=== PATIENT | male | born 1945 | race Caucasian/White ===

== ENCOUNTER 2020-07-29 08:15 | Emergency (ER) | payer OTHER ==
[2020-07-29 09:55] LABS: Absolute Lymphocytes (CBC) 1.3 K/uL (0.7-4.9); Hematocrit 44.7 % (39.6-49.0); MPV 8.3 fL (7.6-11.3)
--- NOTE | 2020-07-29 10:06 | RAD REPORT ---
EXAM DESCRIPTION: Isabelle Single View07/29/2020 9:53 am CLINICAL HISTORY: Shortness of breath COMPARISON: none FINDINGS: The lungs are mildly hyperaerated. The lungs appear clear of acute infiltrate. The heart is normal size IMPRESSION: No acute abnormalities displayed
[2020-07-29 10:14] LABS: BUN Blood Urea Nitrogen 10 mg/dL (7-18); Bicarbonate 29 mmol/L (21-32); Glucose Level 156 mg/dL (74-106); Magnesium 2.3 mg/dL (1.8-2.4); NT PRO-BNP 72 pg/mL (<125); Potassium 4.4 mmol/L (3.5-5.1); Sodium Level 139 mmol/L (136-145); Troponin (Emerg Dept Use Only) < 0.02 ng/mL (0.0-0.045)
--- NOTE | 2020-07-29 12:16 | EDPHYS ---
Physician Documentation [facility] Name: Charles Taylor Age: 74 yrs Sex: Male : 1945 Arrival Date: 07/29/2020 Time: 08:17 Bed 15 Private MD: ED Physician Cristhian Bender HPI: 07/29 12:06 This 74 yrs old Male presents to ER via Wheelchair with complaints of rn Shortness Of Breath, Cough. 12:06 The patient has shortness of breath at rest, with light activity. rn 12:06 Onset: The symptoms/episode began/occurred 3 week(s) ago. Duration: The symptoms are rn continuous, and are unchanged since they started. The patient's shortness of breath is aggravated by coughing, light activity, is alleviated by nothing. Severity of symptoms: At their worst the symptoms were mild in the emergency department the symptoms are unchanged. The patient has experienced similar episodes in the past. Reports 3 weeks of productive cough. No fever. + dyspnea with exertion. Came in for cxr and abx. [place]campo snot feel as bad as when had pneumonia in past. . Historical: - Allergies: 09:06 No Known Allergies; zb - Home Meds: 09:06 Unable to obtain [Active]; zb - PMHx: 09:06 Diabetes - NIDDM; Hypertension; zb - Immunization history:: Adult Immunizations up to date. - Social history:: Smoking status: Patient/guardian denies using tobacco, but has a distant history of tobacco abuse. - Family history:: not pertinent. - Hospitalizations: : No recent hospitalization is reported. ROS: 12:06 Constitutional: Negative for fever, chills, and weight loss, Eyes: Negative for injury, rn pain, redness, and discharge, ENT: Negative for injury, pain, and discharge, Neck: Negative for injury, pain, and swelling, Cardiovascular: Negative for chest pain, palpitations, and edema, Respiratory: + cough and sob Abdomen/GI: Negative for abdominal pain, nausea, vomiting, diarrhea, and constipation, Back: Negative for injury and pain, MS/Extremity: Negative for injury and deformity, Skin: Negative for injury, rash, and discoloration, Neuro: Negative for headache, weakness, numbness, tingling, and seizure. Exam: 12:06 Constitutional: This is a well developed, well nourished patient who is awake, alert, rn and in no acute distress. Head/Face: Normocephalic, atraumatic. ENT: No stridor Neck: Trachea midline, no thyromegaly or masses palpated, and no cervical lymphadenopathy. Supple, full range of motion without nuchal rigidity, or vertebral point tenderness. No Meningismus. Cardiovascular: Regular rate and rhythm. No pulse deficits. Respiratory: No increased work of breathing, no retractions or nasal flaring. Coarse breath sounds bilaterally Abdomen/GI: soft, non-tender Skin: Warm, dry MS/ Extremity: Pulses equal, no cyanosis. Neurovascular intact. Full, normal range of motion. Equal circumference. Neuro: Awake and alert, GCS 15, oriented to person, place, time, and situation. Cranial nerves II-XII grossly intact. Motor strength 5/5 in all extremities. Sensory grossly intact. Cerebellar exam normal. Normal gait. Vital Signs: 08:30 BP 139 / 101; Pulse 89; Resp 18; Temp 98.1(O); Pulse Ox 91% on R/A; Weight 120.2 kg; ph Height 6 ft. (182.88 cm); Pain 0/10; 09:30 BP 105 / 90; Pulse 74; Resp 18; Pulse Ox 90% on R/A; ph 10:30 BP 137 / 101; Pulse 76; Resp 18; Pulse Ox 92% on R/A; zb 11:30 BP 138 / 73; Pulse 71; Resp 16; Pulse Ox 94% on 2 lpm NC; zb 12:41 BP 123 / 74; Pulse 74; Resp 18; Pulse Ox 95% on 2 lpm NC; zb 08:30 Body Mass Index 35.94 (120.20 kg, 182.88 cm) ph MDM: 08:25 Patient medically screened. rn 12:06 Differential diagnosis: asthma, Chronic Obstructive Pulmonary Disease pneumonia, rn Pneumothorax pulmonary edema, reactive airway disease, Sepsis. Data reviewed: vital signs, nurses notes, lab test result(s), radiologic studies, plain films, and as a result, I will discharge patient. Counseling: I had a detailed discussion with the patient and/or guardian regarding: the historical points, exam findings, and any diagnostic results supporting the discharge/admit diagnosis, lab results, radiology results, the need for outpatient follow up, to return to the emergency department if symptoms worsen or persist or if there are any questions or concerns that arise at home. 12:10 Response to treatment: the patient's symptoms have mildly improved after treatment, and rn as a result, I will discharge patient. Special discussion: I discussed with the patient/guardian in detail that at this point there is no indication for admission to the hospital. It is understood, however, that if the symptoms persist or worsen the patient needs to return immediately for re-evaluation. ED course: Neg procal, cxr clear, possibly viral infection vs early pneumonia with COPD. . 12:14 ED course: Spoke with patient, wants to go home, neg hernandezal, reports "like this for 3 rn weeks", understands risks/benefits, will dc home. . 07/29 08:36 Order name: Blood Culture Adult (2) rn 07/29 08:36 Order name: BMP; Complete Time: 10:27 07/29 08:36 Order name: CBC with Diff; Complete Time: 10: 07/29 08:36 Order name: Magnesium; Complete Time: 10: 07/29 08:36 Order name: NT PRO-BNP; Complete Time: 10:27 rn 07/29 08:36 Order name: Troponin (emerg Dept Use Only); Complete Time: 10:27 07/29 08:36 Order name: XRAY CXR (1 view); Complete Time: 10:27 07/29 08:36 Order name: EKG; Complete Time: 08:38 rn 07/29 08:36 Order name: Flu rn 07/29 08:36 Order name: COVID-19 rn 07/29 08:36 Order name: Procalcitonin; Complete Time: 12:06 rn 07/29 08:36 Order name: Lactate; Complete Time: 10:27 rn 07/29 08:36 Order name: Cardiac monitoring; Complete Time: 11:04 rn 07/29 08:36 Order name: EKG - Nurse/Tech; Complete Time: 11:43 rn 07/29 08:36 Order name: IV Saline Lock; Complete Time: 09:50 rn 07/29 08:36 Order name: Labs collected and sent; Complete Time: 09:50 rn 07/29 08:36 Order name: O2 Per Protocol; Complete Time: 11:54 rn 07/29 08:36 Order name: O2 Sat Monitoring; Complete Time: 11:54 rn Administered Medications: 12:31 Drug: Decadron - Dexamethasone 10 mg Route: IVP; Site: left antecubital; zb 12:40 Follow up: Response: No adverse reaction zb 12:31 Drug: LevaQUIN 750 mg Route: PO; zb 12:40 Follow up: Response: No adverse reaction zb Disposition: 07/29/20 12:15 Discharged to Home. Impression: Chronic obstructive pulmonary disease with acute lower respiratory infection. - Condition is Stable. - Discharge Instructions: Acute Bronchitis, Adult, Chronic Obstructive Pulmonary Disease. - Prescriptions for Levaquin 750 mg Oral Tablet - take 1 tablet by ORAL route once daily for 10 days; 10 tablet. Prednisone 20 mg Oral Tablet - take 3 tablet by ORAL route once daily for 5 days; 15 tablet. Albuterol Sulfate 90 mcg/actuation - inhale 1-2 puff by INHALATION route every 4-6 hours; 1 Inhaler. - Medication Reconciliation Form, Thank You Letter, Antibiotic Education, Prescription Opioid Use form. - Follow up: Private Physician; When: 2 - 3 days; Reason: Recheck today's complaints, Re-evaluation by your physician. - Problem is an ongoing problem. - Symptoms have improved. Signatures: Dispatcher [employer] EDMS Cristhian Bender MD MD rn Brown, Zipporah, RN RN zb Corrections: (The following items were deleted from the chart) 12:44 12:15 07/29/2020 12:15 Discharged to Home. Impression: Chronic obstructive pulmonary zb disease with acute lower respiratory infection. Condition is Stable. Forms are Medication Reconciliation Form, Thank You Letter, Antibiotic Education, Prescription Opioid Use. Follow up: Private Physician; When: 2 - 3 days; Reason: Recheck today's complaints, Re-evaluation by your physician. Problem is an ongoing problem. Symptoms have improved. rn
--- NOTE | 2020-07-29 12:16 | ER ---
Nurse's Notes [facility] Name: Charles Taylor Age: 74 yrs Sex: Male : 1945 Arrival Date: 07/29/2020 Time: 08:17 Bed 15 Private MD: Diagnosis: Chronic obstructive pulmonary disease with acute lower respiratory infection Presentation: 07/29 08:30 Initial Sepsis Screen: Does the patient meet any 2 criteria? No. Patient's initial ph sepsis screen is negative. Does the patient have a suspected source of infection? No. Patient's initial sepsis screen is negative. Risk Assessment: Do you want to hurt yourself or someone else? Patient reports no desire to harm self or others. Onset of symptoms was July 02, 2020. 08:30 Acuity: MARYANNE 3 ph 08:30 Chief complaint: Patient states: "I've been coughing green stuff for 3 weeks and I've ph been short of breath". Coronavirus screen: Client presents with at least one sign or symptom that may indicate coronavirus-19. Standard/surgical mask placed on the client. Provider contacted for isolation considerations. 08:59 Ebola Screen: No symptoms or risks identified at this time. ph 08:59 Method Of Arrival: Wheelchair ph Triage Assessment: 08:30 General: Appears in no apparent distress. comfortable, obese, Behavior is calm, zb cooperative, appropriate for age, Denies fever, fatigue, chills. Pain: Denies pain. Neuro: Level of Consciousness is awake, alert, obeys commands, Oriented to person, place, time, situation. Cardiovascular: Reports shortness of breath, Denies chest pain, nausea. Respiratory: Reports shortness of breath cough that is productive, persistent Airway is patent Trachea midline Respiratory effort is even, unlabored, Respiratory pattern is regular. Respiratory: Reports Onset: The symptoms/episode began/occurred 3 weeks ago, the patient has moderate shortness of breath. GI: Patient currently denies diarrhea, nausea. : No signs and/or symptoms were reported regarding the genitourinary system. Derm: No signs and/or symptoms reported regarding the dermatologic system. Skin is intact, is healthy with good turgor. Musculoskeletal: Circulation, motion, and sensation intact. Capillary refill < 3 seconds, in bilateral fingers. Historical: - Allergies: 09:06 No Known Allergies; zb - Home Meds: 09:06 Unable to obtain [Active]; zb - PMHx: 09:06 Diabetes - NIDDM; Hypertension; zb - Immunization history:: Adult Immunizations up to date. - Social history:: Smoking status: Patient/guardian denies using tobacco, but has a distant history of tobacco abuse. - Family history:: not pertinent. - Hospitalizations: : No recent hospitalization is reported. Screenin:35 Abuse screen: Denies threats or abuse. Denies injuries from another. Nutritional zb screening: No deficits noted. Tuberculosis screening: No symptoms or risk factors identified. Fall Risk No fall in past 12 months (0 pts). No secondary diagnosis (0 pts). IV access (20 points). Ambulatory Aid- None/Bed Rest/Nurse Assist (0 pts). Gait- Normal/Bed Rest/Wheelchair (0 pts) Mental Status- Oriented to own ability (0 pts). Total Rodrigez Fall Scale indicates No Risk (0-24 pts). Assessment: 09:30 Reassessment: see triage assessment. zb Vital Signs: 08:30 BP 139 / 101; Pulse 89; Resp 18; Temp 98.1(O); Pulse Ox 91% on R/A; Weight 120.2 kg; ph Height 6 ft. (182.88 cm); Pain 0/10; 09:30 BP 105 / 90; Pulse 74; Resp 18; Pulse Ox 90% on R/A; ph 10:30 BP 137 / 101; Pulse 76; Resp 18; Pulse Ox 92% on R/A; zb 11:30 BP 138 / 73; Pulse 71; Resp 16; Pulse Ox 94% on 2 lpm NC; zb 12:41 BP 123 / 74; Pulse 74; Resp 18; Pulse Ox 95% on 2 lpm NC; zb 08:30 Body Mass Index 35.94 (120.20 kg, 182.88 cm) ph ED Course: 08:17 Patient arrived in ED. ds1 08:22 Maria Teresa Carcamo RN is Primary Nurse. zb 08:24 Cristhian Bender MD is Attending Physician. rn 08:30 Arm band placed on Patient placed in an exam room, on a stretcher, in view of staff zb members, on pulse oximetry. 09:04 Triage completed. ph 09:10 Patient has correct armband on for positive identification. Bed in low position. Call zb light in reach. Side rails up X 1. 09:13 Missed attempt(s): 22 gauge in right antecubital area. Bleeding controlled, band aid ph applied, catheter tip intact. Missed attempt(s): 22 gauge in left wrist. Bleeding controlled, band aid applied, catheter tip intact. 09:35 Missed attempt(s): 22 gauge in right forearm. Bleeding controlled, band aid applied, 3 catheter tip intact. 09:39 First set of blood cultures drawn by me. Inserted saline lock: 20 gauge in left 3 antecubital area, using aseptic technique. Blood collected. 09:41 Second set of blood cultures drawn by me. 3 09:53 XRAY CXR (1 view) In Process Unspecified. EDMS 11:30 EKG done, by ED staff, reviewed by Cristhian Bender MD. 3 12:44 No provider procedures requiring assistance completed. IV discontinued, intact, zb bleeding controlled, No redness/swelling at site. Pressure dressing applied. Administered Medications: 12:31 Drug: Decadron - Dexamethasone 10 mg Route: IVP; Site: left antecubital; zb 12:40 Follow up: Response: No adverse reaction zb 12:31 Drug: LevaQUIN 750 mg Route: PO; zb 12:40 Follow up: Response: No adverse reaction zb Outcome: 12:15 Discharge ordered by . rn 12:43 Discharged to home ambulatory. zb 12:43 Condition: good 12:43 Discharge instructions given to patient, Instructed on discharge instructions, follow up and referral plans. medication usage, Demonstrated understanding of instructions, follow-up care, medications, Prescriptions given X 3. 12:44 Patient left the ED. zb Addendum: 07/31/2020 12:33 Addendum: COVID-19 Result: Negative result given to RN to notify pt. Notified pt of d m5 negative COVID 19 swab results. Pt advised that even with a negative test result they should remain in isolation until symptom free for 3 days without medication. Pt also advised to return to the ED for worsening symptoms. Signatures: Dispatcher [employer] EDMS Selin Downs RN RN dm5 Sanford, Demi ds1 Cristhian Bender MD MD rn Hall, Patricia, RN RN ph Herrera, Deanna [facility] Maria Teresa Carcamo RN RN zb Corrections: (The following items were deleted from the chart) 07/29 09:05 08:59 Chief complaint: Patient states: "I've been coughing green stuff for 3 weeks and ph I've been short of breath" ph 09:05 08:59 Coronavirus screen: Client presents with at least one sign or symptom that may ph indicate coronavirus-19. Standard/surgical mask placed on the client. Provider contacted for isolation considerations. ph
[2020-07-29] MEDS ORDERED: levoFLOXacin 750 MG TAB ONE (12:34)
[2020-07-29] MEDS ORDERED: dexAMETHasone 4 MG/ML VIAL ONE (12:37)
[2020-07-29 12:52] VITALS: TEMP 98.1
[2020-07-29 13:02] VITALS: BP 123/74; O2SAT 95
== END 2020-07-29 12:44 | disposition home or self-care (01) ==
LOC: ER 08:15
DX: J44.0 Chronic obstructive pulmonary disease with (acute) lower respiratory infection (principal); Z20.828 Contact with and (suspected) exposure to other viral communicable diseases; I10 Essential (primary) hypertension; E11.9 Type 2 diabetes mellitus without complications
CPT/HCPCS: 93005; 87040 ×2; 85025; 80048; 36415; 83735; 83605; 84484; 84145; 83880; 87804 ×2; 71045; 96374; 99284; U0002; J1100

== ENCOUNTER 2020-08-04 11:39 | Inpatient (IN) | payer OTHER ==
[2020-08-04] MEDS ORDERED: FLEET ENEMA ADULT PR ONE (12:25)
[2020-08-04] MEDS ORDERED: NA CHLORIDE 0.9% 500 ML ONE (12:25)
[2020-08-04 12:37] LABS: Absolute Lymphocytes (CBC) 0.9 K/uL (0.7-4.9); Basophils % 0.1 % (0-1.3); Hematocrit 49.9 % (39.6-49.0); MPV 9.3 fL (7.6-11.3); RBC Red Blood Cell Count 5.33 M/uL (4.33-5.43)
[2020-08-04 12:46] LABS: Albumin 3.9 g/dL (3.4-5.0); Bilirubin Direct 0.2 mg/dL (0-0.2); Bilirubin Total 0.9 mg/dL (0.2-1.0); Potassium 4.4 mmol/L (3.5-5.1); Protein, Total 7.6 g/dL (6.4-8.2)
[2020-08-04 13:09] LABS: Blood Morphology Comment NOT SEEN (NOT SEEN); Platelet Estimate ADEQ
--- NOTE | 2020-08-04 13:20 | RAD REPORT ---
EXAM DESCRIPTION: CTAbdomen Pelvis W Contrast - 08/04/2020 1:09 pm CLINICAL HISTORY: Abdominal pain. eval for obstruction;Constipation COMPARISON: No comparisons TECHNIQUE: Biphasic CT imaging of the abdomen and pelvis was performed with 100 ml non-ionic IV cont rast. All CT scans are performed using dose optimization technique as appropriate and may include automated exposure control or mA/KV adjustment according to patient size. FINDINGS: The lung bases are clear. Mild diffuse fatty liver is present. A gallstone is present in the gallbladder. The spleen and adrena l glands are normal. Pancreas is unremarkable. Right kidney demonstrates no mass or other-fibrosis. R im calcified cyst is present in the upper pole left kidney measuring 4.7 cm. Multiple dilated small bowel loops are present in the anterior upper abdomen, compatible with a small -bowel obstruction. Distal small bowel loops are decompressed. Point of transition appears to be pres ent near the anterior umbilical omental fat. No free air or significant free fluid. No abscess. Scatt ered colonic diverticula are present. Postsurgical changes are present involving the sigmoid colon. T he appendix is not identified as a discrete structure, however, no secondary findings of appendicitis are identified. No evidence of significant lymphadenopathy. No suspicious bony findings. IMPRESSION: Mild to moderate mechanical small-bowel obstruction is present as detailed. No pneumoper itoneum. Cholelithiasis.
--- NOTE | 2020-08-04 13:43 | EDPHYS ---
Physician Documentation [facility] Name: Charles Taylor Age: 74 yrs Sex: Male : 1945 Arrival Date: 08/04/2020 Time: 11:46 Bed 16 Private MD: ED Physician Cristhian Bender HPI: 08/04 12:01 This 74 yrs old Male presents to ER via Wheelchair with complaints of rn Constipation. 12:01 The patient presents with abdominal distention. Onset: The symptoms/episode rn began/occurred 3 day(s) ago. The symptoms do not radiate. Associated signs and symptoms: Pertinent positives: constipation, nausea, Pertinent negatives: diarrhea, dysuria, fever, shortness of breath. The symptoms are described as crampy. Modifying factors: The symptoms are alleviated by nothing, the symptoms are aggravated by nothing. Severity of pain: At its worst the pain was moderate in the emergency department the pain is unchanged. The patient has experienced similar episodes in the past. The patient has been recently seen at the [facility] Emergency Department. Reports constipation and abd swelling for 3 days, + chronic pain medication, stopped his pain meds because he has been through this before. No fever. + nausea. Took laxative at home and didn't help. Could not find enema at multiple stores. Is passing gas. . Historical: - Allergies: :55 No Known Allergies; sv - PMHx: 11:55 Diabetes - NIDDM; Hypertension; High Cholesterol; Neuropathy; sv - Immunization history:: Flu vaccine is up to date. - Social history:: Smoking status: Patient denies any tobacco usage or history of. - Family history:: not pertinent. - Hospitalizations: : No recent hospitalization is reported. ROS: 12:03 Constitutional: Negative for fever, chills, and weight loss, Eyes: Negative for injury, rn pain, redness, and discharge, Neck: Negative for injury, pain, and swelling, Cardiovascular: Negative for chest pain, palpitations, and edema, Respiratory: Negative for shortness of breath, cough, wheezing, and pleuritic chest pain, Abdomen/GI: + abd swelling and constipation Back: Negative for injury and pain, MS/Extremity: Negative for injury and deformity, Skin: Negative for injury, rash, and discoloration, Neuro: Negative for headache, weakness, numbness, tingling, and seizure. Exam: 12:03 Constitutional: This is a well developed, well nourished patient who is awake, alert, rn and in no acute distress. Head/Face: Normocephalic, atraumatic. ENT: dry MM Cardiovascular: Tachycardic, regular Respiratory: No increased work of breathing, no retractions or nasal flaring. Abdomen/GI: soft, + reducible ventral hernia, non-tender Skin: Warm, dry MS/ Extremity: Pulses equal, no cyanosis. Neurovascular intact. Full, normal range of motion. Equal circumference. Neuro: Awake and alert, GCS 15 Vital Signs: 11:53 BP 133 / 69; Pulse 112; Resp 18; Temp 97; Pulse Ox 99% ; Weight 117.93 kg; Height 6 ft. sv 0 in. (182.88 cm); 14:57 BP 137 / 92; Pulse 88; Resp 18; Temp 97.5; Pulse Ox 95% on R/A; zb 16:00 BP 138 / 89; Pulse 86; Resp 18; Temp 97.6; Pulse Ox 95% on R/A; ph 11:53 Body Mass Index 35.26 (117.93 kg, 182.88 cm) sv MDM: 11:53 Patient medically screened. rn 13:41 Differential diagnosis: bowel obstruction, impaction, dehydration. Data reviewed: vital rn signs, nurses notes, lab test result(s), radiologic studies, CT scan, and as a result, I will admit patient. Counseling: I had a detailed discussion with the patient and/or guardian regarding: the historical points, exam findings, and any diagnostic results supporting the discharge/admit diagnosis, lab results, radiology results, the need for further work-up and treatment in the hospital. Response to treatment: the patient's symptoms have mildly improved after treatment, and as a result, I will admit patient. Admission orders: after a detailed discussion of the patient's condition and case, the admit orders are written by me. ED course: Consulted with Dr. Kumari, will see patient in hospital, requests NG tube/abx/NPO, and admission to hospitalist. Admitted to Dr. Suarez.. 08/04 12:00 Order name: Basic Metabolic Panel; Complete Time: 13:24 rn 08/04 12:00 Order name: CBC with Diff; Complete Time: 13:24 rn 08/04 12:00 Order name: Hepatic Function; Complete Time: 13:24 rn 08/04 12:00 Order name: Lipase; Complete Time: 13:24 rn 08/04 13:09 Order name: Manual Differential EDMS 08/04 14:07 Order name: CBC with Automated Diff EDMS 08/04 14:07 Order name: CBC with Automated Diff EDMS 08/04 14:07 Order name: Comprehensive Metabolic Panel EDMS 08/04 14:07 Order name: Comprehensive Metabolic Panel EDMS 08/04 14:07 Order name: Lipase EDMS 08/04 14:07 Order name: Lipase EDMS 08/04 14:07 Order name: Magnesium EDMS 08/04 14:07 Order name: Magnesium EDMS 08/04 14:07 Order name: Phosphorus EDMS 08/04 12:00 Order name: IV Saline Lock; Complete Time: 12:12 rn 08/04 12:00 Order name: Labs collected and sent; Complete Time: 12:12 rn 08/04 12:00 Order name: CT Abd/Pelvis - IV Contrast Only; Complete Time: 13:24 rn 08/04 14:07 Order name: CONS Physician Consult EDMS 08/04 14:07 Order name: NPO EDMS 08/04 14:07 Order name: Phosphorus EDMS 08/04 14:07 Order name: Protime (+INR) EDMS 08/04 14:07 Order name: Protime (+INR) EDMS 08/04 14:07 Order name: PTT, Activated Partial Thromb EDMS 08/04 14:07 Order name: PTT, Activated Partial Thromb EDMS 08/04 13:30 Order name: NG Tube; Complete Time: 14:53 rn Administered Medications: 12:34 Drug: NS 0.9% 500 ml Route: IV; Rate: bolus; Site: left antecubital; zb 13:30 Follow up: Response: No adverse reaction; IV Status: Completed infusion; IV Intake: zb 500ml 13:30 Follow up: Response: No adverse reaction; IV Status: Completed infusion; IV Intake: zb 500ml 12:34 Drug: Fleet Enema 133 ml Route: WV; zb 14:59 Follow up: Response: No adverse reaction zb 13:50 Drug: morphine 4 mg Route: IVP; Site: left forearm; zb 14:15 Follow up: Response: No adverse reaction; Pain is decreased zb 13:50 Drug: Zofran (Ondansetron) 4 mg Route: IVP; Site: left antecubital; zb 14:59 Follow up: Response: No adverse reaction zb 13:50 Drug: Rocephin 1 grams Route: IV; Rate: calculated rate; Site: left antecubital; zb 14:00 Follow up: Response: No adverse reaction; IV Status: Completed infusion zb 13:50 Drug: Flagyl 500 mg Volume: 100 ml; Route: IVPB; Rate: 200 ml/hr; Infused Over: 30 zb mins; Site: left forearm; 14:00 Follow up: Response: No adverse reaction; IV Status: Completed infusion; IV Intake: 10mlzb 14:57 Follow up: Response: No adverse reaction; IV Status: Completed infusion; IV Intake: zb 100ml Disposition: 08/04/20 13:42 Hospitalization ordered by Ana Suarez for Inpatient Admission. Preliminary diagnosis is Small Bowel Obstruction. - Bed requested for Telemetry/MedSurg (Inpatient). - Status is Inpatient Admission. sv - Condition is Stable. - Problem is new. - Symptoms have improved. Signatures: Dispatcher [employer] EDMS Milla Baig RN RN sv Woody, Diana, RN RN dw Nieto, Roman, MD MD rn Brown, Zipporah, RN RN zb Corrections: (The following items were deleted from the chart) 14:52 13:42 Hospitalization Ordered by Ana Suarez MD for Inpatient Admission. Preliminary dw diagnosis is Small Bowel Obstruction. Bed requested for Telemetry/MedSurg (Inpatient). Status is Inpatient Admission. Condition is Stable. Problem is new. Symptoms have improved. rn 16:54 14:52 08/04/2020 13:42 Hospitalization Ordered by Ana Suarez MD for Inpatient sv Admission. Preliminary diagnosis is Small Bowel Obstruction. Bed requested for Telemetry/MedSurg (Inpatient). Status is Inpatient Admission. Condition is Stable. Problem is new. Symptoms have improved. dw
--- NOTE | 2020-08-04 13:43 | ER ---
Nurse's Notes [facility] Name: Charles Taylor Age: 74 yrs Sex: Male : 1945 Arrival Date: 08/04/2020 Time: 11:46 Bed 16 Private MD: Diagnosis: Small Bowel Obstruction Presentation: 08/04 11:53 Chief complaint: Patient states: constipation since Wednesday. Pt normally takes pain meds sv daily but stopped taking them Wednesday because he didn't want to be impacted, states that he's had this problem before. Coronavirus screen: Client denies travel out of the [place] in the last 14 days. At this time, the client does not indicate any symptoms associated with coronavirus-19. Ebola Screen: No symptoms or risks identified at this time. Risk Assessment: Do you want to hurt yourself or someone else? Patient reports no desire to harm self or others. Onset of symptoms was August 02, 2020. 11:53 Method Of Arrival: Wheelchair sv 11:53 Acuity: MARYANNE 3 sv 14:53 Initial Sepsis Screen: Does the patient meet any 2 criteria? No. Patient's initial zb sepsis screen is negative. Does the patient have a suspected source of infection? No. Patient's initial sepsis screen is negative. Historical: - Allergies: 11:55 No Known Allergies; sv - PMHx: 11:55 Diabetes - NIDDM; Hypertension; High Cholesterol; Neuropathy; sv - Immunization history:: Flu vaccine is up to date. - Social history:: Smoking status: Patient denies any tobacco usage or history of. - Family history:: not pertinent. - Hospitalizations: : No recent hospitalization is reported. Screenin:53 Abuse screen: Denies threats or abuse. Denies injuries from another. Nutritional zb screening: No deficits noted. Tuberculosis screening: No symptoms or risk factors identified. Fall Risk None identified. Assessment: 12:20 General: Appears in no apparent distress. uncomfortable, obese, Behavior is anxious, zb Reports feeling ill for 2-3 days. Pain: Complains of pain in right upper quadrant and left upper quadrant. Neuro: Level of Consciousness is awake, alert, obeys commands, Oriented to person, place, time, situation. Cardiovascular: Capillary refill < 3 seconds. Respiratory: Airway is patent Respiratory effort is even, unlabored. GI: Abdomen is distended, obese, Abd is non tender in right upper quadrant and left upper quadrant Abdomen is tender to palpation in right upper quadrant and left upper quadrant Mass noted in right upper quadrant and left upper quadrant Reports upper abdominal pain, bloating, constipation. : No signs and/or symptoms were reported regarding the genitourinary system. EENT: No signs and/or symptoms were reported regarding the EENT system. Derm: Skin is intact, is healthy with good turgor, Skin is pale. Musculoskeletal: Circulation, motion, and sensation intact. 14:25 Reassessment: Patient appears in no apparent distress at this time. Patient and/or ph family updated on plan of care and expected duration. Pain level reassessed. Patient is alert, oriented x 3, equal unlabored respirations, skin warm/dry/pink. Multiple attempts to place NGT unsuccessful, ERP notified. 15:30 Reassessment: Patient appears in no apparent distress at this time. Patient and/or ph family updated on plan of care and expected duration. Pain level reassessed. Patient is alert, oriented x 3, equal unlabored respirations, skin warm/dry/pink. 16:30 Reassessment: Patient appears in no apparent distress at this time. Patient and/or ph family updated on plan of care and expected duration. Pain level reassessed. Patient is alert, oriented x 3, equal unlabored respirations, skin warm/dry/pink. Vital Signs: 11:53 BP 133 / 69; Pulse 112; Resp 18; Temp 97; Pulse Ox 99% ; Weight 117.93 kg; Height 6 ft. sv 0 in. (182.88 cm); 14:57 BP 137 / 92; Pulse 88; Resp 18; Temp 97.5; Pulse Ox 95% on R/A; zb 16:00 BP 138 / 89; Pulse 86; Resp 18; Temp 97.6; Pulse Ox 95% on R/A; ph 11:53 Body Mass Index 35.26 (117.93 kg, 182.88 cm) sv ED Course: 11:46 Patient arrived in ED. mr 11:53 Cristhian Bender MD is Attending Physician. rn 11:54 Maria Teresa Carcamo, VALERIA is Primary Nurse. zb 11:54 Triage completed. sv 11:55 Arm band placed on. sv 12:10 Initial lab(s) drawn, by me, sent to lab. Inserted saline lock: 20 gauge in left jp3 antecubital area, using aseptic technique. Blood collected. Patient maintains SpO2 saturation greater than 95% on room air. 12:34 Fleets enema given. Patient tolerated well. zb 13:09 CT Abd/Pelvis - IV Contrast Only In Process Unspecified. EDMS 13:35 Contacted [facility] for notification of hospitalization: [id number]. mt 13:42 Ana Suarez MD is Hospitalizing Provider. rn 14:53 Patient has correct armband on for positive identification. Bed in low position. Call zb light in reach. Side rails up X 1. Pulse ox on. NIBP on. Door closed. Noise minimized. Warm blanket given. 14:53 No provider procedures requiring assistance completed. NGT: inserted 16 Fr. via left zb nare. verified placement of air over stomach, to intermittent suction. Patient tolerated well. Patient admitted, IV remains in place. Administered Medications: 12:34 Drug: NS 0.9% 500 ml Route: IV; Rate: bolus; Site: left antecubital; zb 13:30 Follow up: Response: No adverse reaction; IV Status: Completed infusion; IV Intake: zb 500ml 13:30 Follow up: Response: No adverse reaction; IV Status: Completed infusion; IV Intake: zb 500ml 12:34 Drug: Fleet Enema 133 ml Route: NE; zb 14:59 Follow up: Response: No adverse reaction zb 13:50 Drug: morphine 4 mg Route: IVP; Site: left forearm; zb 14:15 Follow up: Response: No adverse reaction; Pain is decreased zb 13:50 Drug: Zofran (Ondansetron) 4 mg Route: IVP; Site: left antecubital; zb 14:59 Follow up: Response: No adverse reaction zb 13:50 Drug: Rocephin 1 grams Route: IV; Rate: calculated rate; Site: left antecubital; zb 14:00 Follow up: Response: No adverse reaction; IV Status: Completed infusion zb 13:50 Drug: Flagyl 500 mg Volume: 100 ml; Route: IVPB; Rate: 200 ml/hr; Infused Over: 30 zb mins; Site: left forearm; 14:00 Follow up: Response: No adverse reaction; IV Status: Completed infusion; IV Intake: 10mlzb 14:57 Follow up: Response: No adverse reaction; IV Status: Completed infusion; IV Intake: zb 100ml Intake: 13:30 IV: 500ml; Total: 500ml. zb 13:30 IV: 500ml; Total: 1000ml. zb 14:00 IV: 10ml; Total: 1010ml. zb 14:57 IV: 100ml; Total: 1110ml. zb Outcome: 13:42 Decision to Hospitalize by Provider. rn 16:54 Patient left the ED. sv 16:54 Admitted to Med/surg accompanied by tech, via stretcher, with chart. 16:54 Condition: stable 16:54 Instructed on the need for admit. Signatures: Dispatcher [employer] Milla Perez, RN Janet Mixon YuliaCristhian MD MD rn Hall, Patricia, RN RN Jerson [facility] Didier Veliz Zipporah, RN RN zb Corrections: (The following items were deleted from the chart) 14:59 14:58 Response: No adverse reaction; IV Status: Completed infusion zb zb
[2020-08-04] MEDS ORDERED: CEFTRIAXONE/SWI 1gm 1 GM/10 ML SYR ONE (14:01)
[2020-08-04] MEDS ORDERED: ONDANSETRON 4 MG/2 ML VIAL ONE (14:01)
[2020-08-04] MEDS ORDERED: MORPHINE 4 MG/ML SYR ONE (14:01)
[2020-08-04] MEDS ORDERED: ACETAMINOPHEN 500 MG TAB PO PRN (14:02)
[2020-08-04] MEDS ORDERED: METRONIDAZOLE 500mg IVPB 500 MG/100 ML BAG IV ONE (14:02)
[2020-08-04] MEDS ORDERED: LIDOCAINE VISCOUS 2% SOLN 15 ML UDC ONE (14:02)
[2020-08-04] MEDS: HYDROMORPHONE HCL 0.5 MG/0.5 ML INJ IV PRN ×2 (17:19→21:20)
[2020-08-04] MEDS: Ringers Lactate 1,000 ML IV SCH (17:19)
[2020-08-04] MEDS: Levofloxacin500mg IV 500 MG/100 ML BAG IV SCH (17:20)
[2020-08-04 17:38] VITALS: BMI 35.2
[2020-08-04] MEDS: METRONIDAZOLE 500mg IVPB 500 MG/100 ML BAG IV SCH ×2 (18:00→23:28)
[2020-08-04] MEDS: ONDANSETRON 4 MG/2 ML VIAL IV PRN (21:25)
[2020-08-04] MEDS ORDERED: DIAZEPAM 5 MG TABLET PO ONE (23:43)
[2020-08-04] MEDS ORDERED: MINERAL OIL 30 ML UCUP PO ONE (23:43)
--- NOTE | 2020-08-04 23:52 | P.CNS ---
Date of Consult: 08/04/20 PC: This 74-year-old male presents emergency room with severe cramping abdominal pain for diagnosis and treatment. HPC: Patient states he ate a lot of chicken wings a couple days ago. A couple hr later he began to experience severe cramping abdominal pain. He has been passing some gas but not having any real bowel movements. Tried to take some laxatives with no success. He has had episodes of partial bowel obstructions in the past. PSHx: Previous abdominal surgeries, including a ventral hernia repair. SOC: No known allergies SYS REVIEW: States he has been in good health. No cough, wheeze, shortness of breath. Is on chronic pain medication. (He is stopped is chronic pain medicine for the last few days as he knows it makes him constipated). Mild urinary complaints O/E awake alert vital signs are stable HEENT: Nasogastric tube in place but minimal out through nasogastric tube Chest: Chest movement equal bilaterally ABD: Abdomen is mildly distended. Has some point tenderness on palpation of the midline. No true guarding or rebound at the moment. Hernia clinically is reduced. LOCO: Intact DATA: Elevated white cell count at 12,000. CT scan demonstrates obstruction in the area of his hernia. IMPRESSION: Partial small-bowel obstruction. PLAN: The patient has been admitted for observation pain control and IV fluids. We will place a nasogastric tube that is had minimal output. I will give the patient some mineral oil through the nasogastric tube. I will also order him 5 mg of Valium to help him relax, and also help with his alcohol withdrawal symptoms at the moment. We will re-evaluate the patient in the morning. This is been explained to the patient, and he is content with his route of treatment.
[2020-08-05] MEDS: HYDROMORPHONE HCL 0.5 MG/0.5 ML INJ IV PRN ×6 (01:30→21:24)
[2020-08-05] MEDS: Ringers Lactate 1,000 ML IV SCH ×2 (02:59→11:00)
[2020-08-05] MEDS: ONDANSETRON 4 MG/2 ML VIAL IV PRN ×2 (05:00→12:57)
[2020-08-05] MEDS: METRONIDAZOLE 500mg IVPB 500 MG/100 ML BAG IV SCH ×3 (05:00→17:00)
[2020-08-05 05:43] LABS: Absolute Lymphocytes (CBC) 1.5 K/uL (0.7-4.9); Basophils % 0.3 % (0-1.3); Hematocrit 47.3 % (39.6-49.0); Lymphocytes % 13.3 % (15.3-44.8); MPV 9.1 fL (7.6-11.3); RBC Red Blood Cell Count 5.03 M/uL (4.33-5.43)
[2020-08-05 05:47] LABS: Protime INR 1.1
[2020-08-05 06:06] LABS: ALT/SGPT 19 U/L (12-78); AST/SGOT 14 U/L (15-37); Albumin 3.5 g/dL (3.4-5.0); Alkaline Phosphatase 52 U/L (45-117); BUN Blood Urea Nitrogen 33 mg/dL (7-18); Bicarbonate 23 mmol/L (21-32); Bilirubin Total 0.6 mg/dL (0.2-1.0); Glucose Level 155 mg/dL (74-106); Lipase 56 U/L (73-393); Magnesium 2.3 mg/dL (1.8-2.4); Phosphorus 3.9 mg/dL (2.5-4.9); Potassium 4.2 mmol/L (3.5-5.1); Protein, Total 6.8 g/dL (6.4-8.2); Sodium Level 144 mmol/L (136-145)
--- NOTE | 2020-08-05 06:48 | P.HP ---
Certification for Inpatient Patient admitted to: Inpatient With expected LOS: >2 Midnights Patient will require the following post-hospital care: None Practitioner: I am a practitioner with admitting privileges, knowledge of patient current condition, hospital course, and medical plan of care. Services: Services provided to patient in accordance with Admission requirements found in Title 42 Section 412.3 of the Code of Federal Regulations Patient History Date of Service: 08/04/20 Reason for admission: Small-bowel obstruction History of Present Illness: patient is 74-year-old gentleman who came to the hospital with a small-bowel obstruction. Patient was having abdominal discomfort and started having some nausea and vomiting. Patient has a history of multiple prior issues with small- bowel obstruction. Patient required a colostomy from a partial colectomy in the past. Patient also had mesh repair for a hernia surgery. However, this had al so be removed. Patient has gone through numerous prior abdominal surgeries and whenever he does develop of small-bowel obstruction now days he gets an NG-tube any normally recovers and a couple of days. NG tube was placed and he had very little output from the NG tube. Will continue monitoring and will continue encourage him to get out of bed and ambulate. Hopefully we can clamp the NG tube in the morning and try to get it removed. General surgery consultation pending. Allergies No Known Allergies Allergy (Verified 08/04/20 17:14) - Past Medical/Surgical History Has patient received pneumonia vaccine in the past: Yes -: diverticulum -: Partial colectomy with colostomy placement; reversal of colostomy -: ventral hernia repair with mesh placement -: mesh removal - Family History Father Family History: Reviewed- Non-Contributory - Social History Smoking Status: Former smoker Alcohol use: Yes CD- Drugs: No Review of Systems 10-point ROS is otherwise unremarkable Physical Examination - Vital Signs Temperature: 97.6 F Blood Pressure: 119/79 Pulse: 86 Respirations: 18 Pulse Ox (%): 94 - Physical Exam General: Alert, In no apparent distress, Oriented x3, Other HEENT: Atraumatic, PERRLA, Mucous membr. moist/pink, Other ( NG tube in place), EOMI, Sclerae nonicteric Neck: Supple, 2+ carotid pulse no bruit, No LAD, Without JVD or thyroid abnormality Respiratory: Clear to auscultation bilaterally, Normal air movement Cardiovascular: Regular rate/rhythm, Normal S1 S2 Gastrointestinal: No guarding, Absent bowel sounds, Distended, Tenderness, Rebound Musculoskeletal: No clubbing, No swelling, No tenderness Integumentary: No rashes Neurological: Normal gait, Normal speech, Normal strength at 5/5 x4 extr, Normal tone, Sensation intact, Cranial nerves 3-12 intact, Normal affect Lymphatics: No axilla or inguinal lymphadenopathy - Studies Laboratory Data (last 24 hrs) 08/04/20 12:10: WBC 11.7 H D, Hgb 16.5, Hct 49.9 H, Plt Count 281 08/04/20 12:10: Sodium 141, Potassium 4.4, BUN 32 H D, Creatinine 0.99, Glucose 207 H, Total Bilirubin 0.9, AST 10 L, ALT 21, Alkaline Phosphatase 62, Lipase 66 L Assessment & Plan - Problems (Diagnosis) (1) Small bowel obstruction due to adhesions Current Visit: Yes Status: Acute (2) History of partial colectomy Current Visit: Yes Status: Acute (3) History of colostomy reversal Current Visit: Yes Status: Acute (4) History of ventral hernia repair Current Visit: Yes Status: Acute - Plan -general surgery consultation. Repeat abdominal films in the morning. -IV hydration and IV antibiotics -NG tube to low intermittent suction -strict blood pressure and blood sugar control -monitor electrolytes and blood count closely -pain control Discharge Plan: Home Plan to discharge in: Greater than 2 days - Advance Directives Does patient have a Living Will: No Does patient have a Durable POA for Healthcare: No - Code Status/Comfort Care Code Status Assessed: Yes Code Status: Full Code Critical Care: No Time Spent Managing PTS Care (In Minutes): 45
[2020-08-05] MEDS: ENOXAPARIN 40 MG/0.4 ML SQ SCH (08:51)
--- NOTE | 2020-08-05 09:04 | RAD REPORT ---
EXAM DESCRIPTION: RAD - Abdomen Acute Series - 08/05/2020 6:24 am CLINICAL HISTORY: Small-bowel obstruction COMPARISON: Chest Single View dated 07/29/2020; Abdomen Pelvis W Contrast dated 08/04/2020 FINDINGS: Upright frontal projection of the chest shows clear lungs. No subdiaphragmatic free air. T he heart is normal in size. Tip of the nasogastric tube is in the distal esophagus. Multiple dilated small bowel loops are present in the upper abdomen compatible with a moderate mechan ical small-bowel obstruction. IMPRESSION: Moderate mechanical small bowel obstruction in the upper abdomen. Tip of the nasogastric tube is in the distal esophagus.
--- NOTE | 2020-08-05 12:47 | P.PN ---
Subjective Date of Service: 08/05/20 Primary Care Provider: Unknown Chief Complaint: Small-bowel obstruction Subjective: Other (NG tube in place. Abdominal pain noted.) Physical Examination - Vital Signs Temperature: 97.6 F Blood Pressure: 119/79 Pulse: 68 Respirations: 18 Pulse Ox (%): 94 - Physical Exam General: Alert, In no apparent distress, Cooperative HEENT: Atraumatic Neck: Supple Respiratory: Clear to auscultation bilaterally, Normal air movement Cardiovascular: Normal pulses, Regular rate/rhythm Gastrointestinal: Hypoactive, No masses, No rebound, No guarding, Distended (Some abdominal distention noted but soft), Tenderness (Tender throughout) Musculoskeletal: No erythema, No tenderness, No warmth Integumentary: No erythema, No warmth, No cyanosis Neurological: Normal speech, Normal strength at 5/5 x4 extr, Normal tone, Normal affect - Studies Laboratory Data (last 24 hrs) 08/04/20 12:10: WBC 11.7 H D, Hgb 16.5, Hct 49.9 H, Plt Count 281 08/04/20 12:10: Sodium 141, Potassium 4.4, BUN 32 H D, Creatinine 0.99, Glucose 207 H, Total Bilirubin 0.9, AST 10 L, ALT 21, Alkaline Phosphatase 62, Lipase 66 L Medications List Reviewed: Yes Assessment & Plan Discharge Plan: Home Plan to discharge in: 72 Hours Physician Review Additional Text: Impression: Abdominal pain, nausea and vomiting related to mechanical small bowel obstruction complicated with history of partial colectomy and reversal and ventral hernia repair Diabetes mellitus type 2 Hypertension BPH Essential tremor Plan: Abdominal pain, nausea and vomiting related to mechanical small bowel obstruction complicated with history of partial colectomy and reversal and ventral hernia repair: Continue with NG tube. Continue IV fluids. Will provide medication for pain and nausea. Will discuss further with surgery. Will provide Inventive spirometer. Encourage ambulation. Will continue monitor closely. Diabetes mellitus type 2: Will monitor Accu-Cheks. Provide sliding scale. Hypertension: Will provide medication IV as needed. BPH: Restart home medication once able to tolerate diet. Essential tremor: Restart home medication once able to tolerate diet. Time Spent Managing Pts Care (In Minutes): 55
[2020-08-05] MEDS ORDERED: HYDRALAZINE HCL 20 MG/ML VIAL IV PRN (12:48)
[2020-08-05] MEDS: NACHLORIDE 0.45% 1,000 ML IV SCH ×2 (12:58→23:00)
[2020-08-05] MEDS: Levofloxacin500mg IV 500 MG/100 ML BAG IV SCH (14:00)
--- NOTE | 2020-08-05 14:37 | P.PN ---
Date of Service: 08/05/20 S: Patient states he still has abdominal pain. Can still feel cramping going on. Feels like it has moved down a little bit, but still has a tenderness in the same spot. O: Abdomen is soft, still has epigastric tenderness. Hyperactive bowel sounds. Passing gas per rectum. A: Would expect more progress no air sitting at the moment. P: Will treat again with no will today. Patient up ambulating. Will give him some ice chips. After resolution much tomorrow will take him to the operating room for exploratory laparotomy. The problem that we have thus he does have a hernia in the area. I did not know if these circumstances will allow us to place a piece of mesh. We would most likely do a laparoscopic release of his adhe sions, allow things to settle down, and then do a more definitive repair with either lateral component release and a few weeks. I have explained this to the patient, he understands.,
[2020-08-05] MEDS ORDERED: MINERAL OIL 30 ML UCUP FT ONE (15:00)
[2020-08-06] MEDS: METRONIDAZOLE 500mg IVPB 500 MG/100 ML BAG IV SCH ×5 (00:51→23:22)
[2020-08-06] MEDS: NACHLORIDE 0.45% 1,000 ML IV SCH ×4 (00:54→18:21)
[2020-08-06] MEDS: HYDROMORPHONE HCL 0.5 MG/0.5 ML INJ IV PRN ×6 (00:55→20:13)
[2020-08-06] MEDS: ONDANSETRON 4 MG/2 ML VIAL IV PRN (04:28)
[2020-08-06] MEDS: ENOXAPARIN 40 MG/0.4 ML SQ SCH (08:52)
--- NOTE | 2020-08-06 13:21 | P.PN ---
Subjective Date of Service: 08/06/20 Primary Care Provider: Unknown Chief Complaint: Small-bowel obstruction Subjective: Other (Patient reports bowel movement last night.) Physical Examination - Vital Signs Temperature: 97 F Blood Pressure: 140/68 Pulse: 74 Respirations: 16 Pulse Ox (%): 93 - Physical Exam General: Alert, In no apparent distress, Oriented x3, Cooperative HEENT: Atraumatic Neck: Supple Respiratory: Clear to auscultation bilaterally, Normal air movement Cardiovascular: Normal pulses, Regular rate/rhythm Gastrointestinal: Tenderness (Pain improved.) Neurological: Normal speech, Normal strength at 5/5 x4 extr, Normal tone, Normal affect - Studies Medications List Reviewed: Yes Assessment & Plan Discharge Plan: Home Plan to discharge in: 24 Hours Physician Review Additional Text: Impression: Abdominal pain, nausea and vomiting related to mechanical small bowel obstruction complicated with history of partial colectomy and reversal and ventral hernia repair Diabetes mellitus type 2 Hypertension BPH Essential tremor Plan: Abdominal pain, nausea and vomiting related to mechanical small bowel ob struction complicated with history of partial colectomy and reversal and ventral hernia repair: Patient had bowel movement last night. Suspect surgery will clamp NG tube for trial. If stable NG tube could possibly be removed later today and start on clear liquids. Will discuss with surgery 1st. Continue ambulation. Continue incentive spirometer. Anticipate improvement over the n ext 24 hr. Diabetes mellitus type 2: Will monitor Accu-Cheks. Provide sliding scale. Hypertension: Will provide medication IV as needed. BPH: Restart home medication once able to tolerate diet. Essential tremor: Restart home medication once able to tolerate diet. Time Spent Managing Pts Care (In Minutes): 55
--- NOTE | 2020-08-06 14:31 | P.PN ---
Date of Service: 08/06/20 S: The patient states his abdomen feels better than it has in a long time. Admits to some dietary indiscretion, patient has poor dentition. Most likely had a bolus of some type that was causing his partial obstruction. O: Vital signs are stable, abdomen is soft, nontender, no guarding. Vladimir is hernias are currently reduced. A: Patient appears to have resolved his partial small-bowel obstruction PE: Will place a mineral, and then Dc NG tube. He may be started on clear liquids. I have told the patient that I will see him in a couple weeks time in my office. At that point we can sit down and discuss whether it is worth having an exploratory laparotomy with lyses of adhesions and possible repair of his hernias. I would not do it on this admission, due to the fact that the bowel will be swollen, friable, and the potential for he injury is high. He understands this is content with this plan.
[2020-08-06] MEDS: Levofloxacin500mg IV 500 MG/100 ML BAG IV SCH (16:10)
[2020-08-06] MEDS ORDERED: MINERAL OIL 30 ML UCUP PO ONE (17:00)
[2020-08-07] MEDS: ONDANSETRON 4 MG/2 ML VIAL IV PRN (00:08)
[2020-08-07] MEDS: HYDROMORPHONE HCL 0.5 MG/0.5 ML INJ IV PRN ×4 (00:08→12:54)
[2020-08-07] MEDS: NACHLORIDE 0.45% 1,000 ML IV SCH ×3 (03:46→15:00)
[2020-08-07 04:28] LABS: Absolute Lymphocytes (CBC) 1.2 K/uL (0.7-4.9); Basophils % 0.4 % (0-1.3); Hematocrit 43.5 % (39.6-49.0); Lymphocytes % 17.9 % (15.3-44.8)
--- NOTE | 2020-08-07 04:32 | CON ---
Date of Consultation: 08/06/2020 Reason For Consultation: 22-beat run of ventricular tachycardia. History Of Present Illness: Mr. Taylor is a 74-year-old male, who was admitted on 08/04/2020 with smal l bowel obstruction and constipation. He does not really have any previous cardiac history. Has a h istory of diabetes, hypertension, dyslipidemia, neuropathy. The patient was seen by Dr. Kumari, who recommended observation, pain control, and IV fluid with a nasogastric tube. Mineral oil was recomm ended for constipation. He was thought to have a partial small-bowel obstruction. It was in the are a of the hernia that he had. No previous cardiac history and certainly no cardiac symptoms, but whil e he was on telemetry he had a short run of ventricular tachycardia with palpitation but no hemodynam ic compromise. This has not recurred. At the time that happened, his potassium was normal, and his magnesium was normal. Past Medical History: Otherwise as stated above. Allergies: NONE. Review of Systems: Negative. Social History: Negative. Family History: Noncontributory. Physical Examination: Vital Signs: Blood pressure was 135/63, with a sinus rhythm, occasional PACs. He was afebrile. HEENT: Negative. Neck: Supple with no bruit. Chest: Clear. Cardiac: Revealed a regular rhythm and rate. No murmurs, gallops, or rubs. Abdomen: Benign. Extremities: Revealed no clubbing, cyanosis, or edema. Diagnostic Data: Diagnostic data of significance were stated earlier. Impression And Plan: The patient is with hypertension, diabetes, dyslipidemia, new-onset small bowel obstruction, one short run of ventricular tachycardia without any hemodynamic compromise, although t he patient did feel palpitation. He had a normal potassium and magnesium. I would not change his me dical therapy right now, which include Lovenox, hydralazine, Levaquin, and Flagyl, as well as hydrati on. I would like to obtain a 2D echocardiogram to rule out any wall motion abnormalities and I think sometimes down the road once he is improved, I think doing a stress test as an outpatient would be v shirley reasonable. Please note that the patient at home is supposed to be on aspirin, Lipitor, Jardianc e, Proscar, lisinopril, Flomax, tramadol, and glipizide. These should be continued as soon as he is over his small bowel obstruction. We will continue to follow. RASHID Voice ID: [id number] Report ID: [id number]
[2020-08-07 04:40] LABS: BUN Blood Urea Nitrogen 17 mg/dL (7-18); Bicarbonate 27 mmol/L (21-32); Glucose Level 119 mg/dL (74-106); Potassium 3.4 mmol/L (3.5-5.1); Sodium Level 141 mmol/L (136-145)
[2020-08-07] MEDS: METRONIDAZOLE 500mg IVPB 500 MG/100 ML BAG IV SCH ×2 (05:04→12:54)
[2020-08-07 05:21] VITALS: O2SAT 92
[2020-08-07] MEDS: ENOXAPARIN 40 MG/0.4 ML SQ SCH (08:15)
--- NOTE | 2020-08-07 08:50 | PN ---
Date of Progress Note: 08/07/2020 I had seen Mr. Taylor yesterday for ventricular tachycardia one episode despite normal potassium and no rmal magnesium. The patient is here for small bowel obstruction with nasogastric tube in place. Has been n.p.o. Echocardiogram which was done is within normal limits. No further ventricular tachycar michael has been noted. We will continue to watch his electrolytes. Watch his telemetry. No further ca rdiac workup at this point. Once his bowel obstruction has resolved and he is able to go home, I jaydon l make arrangements for him to have an outpatient stress test to rule out CAD. TYESHA/CIRO Voice ID: [id number] Report ID: [id number]
[2020-08-07] MEDS ORDERED: POTASSIUM CL SA 10 MEQ TAB PO ONE (09:00)
--- NOTE | 2020-08-07 09:52 | ECHO ---
HEIGHT: 6 ft 0 in WEIGHT: 260 lb 0 oz DATE OF STUDY: 08/06/[address]: Alex Hernandez MD 2-DIMENSIONAL: YES M.MODE: YES DOPPLER: YES COLOR FLOW: YES TDS: YES PORTABLE: NO DEFINITY: NO BUBBLE STUDY: NO DIAGNOSIS: VTACH CARDIAC HISTORY: CATHERIZATION: SURGERY: PROSTHETIC VALVE: PACEMAKER: MEASUREMENTS (cm) DIASTOLIC (NORMALS) SYSTOLIC (NORMALS) IVSd 1.2 (0.6-1.2) LA Diam (1.9-4.0) LVEF 58% LVIDd 3.3 (3.5-5.7) LVIDs 2.3 (2.0-3.5) %FS 30% LVPWd 1.3 (0.6-1.2) Ao Diam 3.4 (2.0-3.7) 2 DIMENSIONAL ASSESSMENT: RIGHT ATRIUM: NORMAL LEFT ATRIUM: NORMAL RIGHT VENTRICLE: NORMAL LEFT VENTRICLE: NORMAL TRICUSPID VALVE: NORMAL MITRAL VALVE: NORMAL PULMONIC VALVE: NORMAL3 AORTIC VALVE: NORMAL PERICARDIAL EFFUSION: NONE AORTIC ROOT: NORMAL LEFT VENTRICULAR WALL MOTION: NORMAL. DOPPLER/COLOR FLOW: NORMAL. COMMENTS: TECHNICALLY DIFFICULT STUDY. GROSSLY NORMAL LEFT VENTRICULAR SIZE AND FUNCTION. NOW ALL MOTION ABNORMALITY. NO EFFUSION. TECHNOLOGIST: BELKIS KNOX
--- NOTE | 2020-08-07 12:17 | P.PN ---
Date of Service: 08/07/20 S: Patient feels good today, pain is resolved. Has been having bowel movements. Tolerating clear liquids, asking for regular food. O: Abdomen is soft, nontender, no guarding or rebound, hernias oral reduced. A: Surgically stable P: Advanced to regular diet, if tolerated may be discharged. Patient is been advised about staying on a soft texture diet. He will call my office on Wednesday or Wednesday and make a appointment. At that time we will evaluate his progress since his discharge, and discuss possible surgical options in the future. He is very much in favor of this.
--- NOTE | 2020-08-07 13:12 | P.DS ---
Admission Date: 08/04/20 Discharge Date: 08/07/20 Primary Care Provider: Unknown Disposition: ROUTINE DISCHARGE Discharge Condition: GOOD Reason for Admission: Small-bowel obstruction Consultations: Surgery-Dr. Kumari Procedures: Ct Scan: FINDINGS: The lung bases are clear. Mild diffuse fatty liver is present. A gallstone is present in the gallbladder. The spleen and adrenal glands are normal. Pancreas is unremarkable. Right kidney demonstrates no mass or other-fibrosis. Rim calcified cyst is present in the upper pole left kidney measuring 4.7 cm. Multiple dilated small bowel loops are present in the anterior upper abdomen, compatible with a small-bowel obstruction. Distal small bowel loops are decompressed. Point of transition appears to be present near the anterior umbilical omental fat. No free air or significant free fluid. No abscess. Scattered colonic diverticula are present. Postsurgical changes are present involving the sigmoid colon. The appendix is not identified as a discrete structure, however, no secondary findings of appendicitis are identified. No evidence of significant lymphadenopathy. No suspicious bony findings. IMPRESSION: Mild to moderate mechanical small-bowel obstruction is present as detailed. No pneumoperitoneum. Cholelithiasis. ECHO: EF 58% LEFT VENTRICULAR WALL MOTION: NORMAL. DOPPLER/COLOR FLOW: NORMAL. COMMENTS: TECHNICALLY DIFFICULT STUDY. GROSSLY NORMAL LEFT VENTRICULAR SIZE AND FUNCTION. NOW ALL MOTION ABNORMALITY. NO EFFUSION. Medical problem list: Abdominal pain, nausea and vomiting related to mechanical small bowel obstruction complicated with history of partial colectomy and reversal and ventral hernia repair Diabetes mellitus type 2 Hypertension BPH Essential tremor Brief History of Present Illness: 74-year-old male with history of diabetes, hypertension, hyperlipidemia. Patient presented with abdominal pain, nausea, vomiting secondary to small-bowel obstruction. CT scan confirmed. Patient with history of small-bowel obstruction the past. Patient with history of multiple surgeries in the past as well. Patient admitted for further evaluation and treatment. Hospital Course: Patient presented with abdominal pain, nausea and vomiting related to mechanical small bowel obstruction. This was complicated with a history of partial colectomy and reversal and ventral hernia repair. The patient was admitted for further evaluation and treatment. Patient was seen by surgery. No surgical intervention was required. Patient did require NG tube. The patient improved during the course of his stay. At discharge she is without significant nausea, vomiting. Patient able to tolerate diet. At discharge patient will continue with a soft diet. Patient is to chew his food for at least 30 seconds. Education on small-bowel obstruction provided. Patient will need a follow up with surgery in 1-2 weeks to follow up this hospitalization. Patient may continue with his abdominal binder. Patient with diabetes mellitus type 2. This has remained stable. At discharge patient will continue with his current medication including glipizide 10 mg 1 pill twice daily, Jardiance 25 mg daily, and alogliptin once daily. Recommend to maintain blood sugars less than 140 fasting and less than 200 after meals. Further adjustment can be done by his PCP. Patient with hypertension. Patient was seen by Cardiology due to episode of V- tach. This resolved on its own. Patient was asymptomatic. No intervention required. At discharge patient will continue with lisinopril 20 mg 1 pill twice daily. Recommend to maintain blood pressure less than 130/80. Further adjustment can be done by his PCP. Recommend follow up with cardiology in the future to consider cardiac evaluation due to his multiple risk factors. Patient with diabetic neuropathy. At discharge he may continue with gabapentin 300 mg 3 pills 3 times a day. Further adjustment can be done by his PCP. Patient with BPH. At discharge patient will continue with Flomax 0.8 mg daily and Proscar 5 mg daily. Patient with hyperlipidemia. At discharge patient will continue with Lipitor 10 mg daily. Vital Signs/Physical Exam: Temp Pulse Resp BP Pulse Ox 97.2 F 82 18 131/63 99 08/07/20 08:00 08/07/20 08:00 08/07/20 12:54 08/07/20 08:00 08/07/20 12:54 General: Alert, In no apparent distress, Oriented x3, Cooperative HEENT: Atraumatic Neck: Supple Respiratory: Clear to auscultation bilaterally, Normal air movement Cardiovascular: Normal pulses, Regular rate/rhythm Gastrointestinal: Normal bowel sounds, No masses, No rebound, No guarding, Tenderness (much improved.) Neurological: Normal speech, Normal strength at 5/5 x4 extr, Normal tone, Normal affect Laboratory Data at Discharge: WBC 6.6 K/uL (4.3-10.9) D 08/07/20 03:58 Hgb 14.7 g/dL (13.6-17.9) 08/07/20 03:58 Hct 43.5 % (39.6-49.0) 08/07/20 03:58 Plt Count 157 K/uL (152-406) D 08/07/20 03:58 PT 12.9 SECONDS (9.5-12.5) H 08/05/20 05:29 INR 1.10 08/05/20 05:29 APTT 27.5 SECONDS (24.3-36.9) 08/05/20 05:29 Sodium 141 mmol/L (136-145) 08/07/20 03:58 Potassium 3.4 mmol/L (3.5-5.1) L 08/07/20 03:58 BUN 17 mg/dL (7-18) 08/07/20 03:58 Creatinine 0.52 mg/dL (0.55-1.3) L 08/07/20 03:58 Glucose 119 mg/dL (74-106) H 08/07/20 03:58 Phosphorus 3.9 mg/dL (2.5-4.9) 08/05/20 05:29 Magnesium 2.0 mg/dL (1.8-2.4) 08/07/20 03:58 Total Bilirubin 0.6 mg/dL (0.2-1.0) 08/05/20 05:29 AST 14 U/L (15-37) L 08/05/20 05:29 ALT 19 U/L (12-78) 08/05/20 05:29 Alkaline Phosphatase 52 U/L (45-117) 08/05/20 05:29 Lipase 56 U/L (73-393) L 08/05/20 05:29 Home Medications: Alogliptin Benzoate [Alogliptin] 1 tab PO DAILY 08/05/20 Aspirin 1 tab PO DAILY 08/05/20 Atorvastatin Calcium [Lipitor*] 1 tab PO BEDTIME 08/05/20 Cyanocobalamin [Vitamin B-12*] 1 tab PO DAILY 08/05/20 Empagliflozin [Jardiance] 1 tab PO DAILY 08/05/20 Finasteride [Proscar*] 1 tab PO DAILY 08/05/20 Gabapentin 3 cap PO TID 08/05/20 Lisinopril [Zestril] 1 tab PO BID 08/05/20 Primidone 1 tab PO BID 08/05/20 Tamsulosin [Flomax*] 2 cap PO DAILY 08/05/20 Tramadol HCl [Ultram] 1 tab PO Q8H PRN 08/05/20 glipiZIDE [Glipizide] 1 tab PO BID 08/05/20 Patient Discharge Instructions: 1. Recommend follow up with PCP in 1 week to follow this hospitalization. 2. Patient presented with abdominal pain, nausea and vomiting related to mechanical small bowel obstruction. This was complicated with a history of partial colectomy and reversal and ventral hernia repair. The patient was admitted for further evaluation and treatment. Patient was seen by surgery. No surgical intervention was required. Patient did require NG tube. The patient improved during the course of his stay. At discharge she is without significant nausea, vomiting. Patient able to tolerate diet. At discharge patient will continue with a soft diet. Patient is to chew his food for at least 30 seconds. Education on small-bowel obstruction provided. Patient will need a follow up with surgery in 1-2 weeks to follow up this hospitalization. Patient may continue with his abdominal binder. 3. Patient with diabetes mellitus type 2. This has remained stable. At discharge patient will continue with his current medication including glipizide 10 mg 1 pill twice daily, Jardiance 25 mg daily, and alogliptin once daily. Recommend to maintain blood sugars less than 140 fasting and less than 200 after meals. Further adjustment can be done by his PCP. 4. Patient with hypertension. Patient was seen by Cardiology due to episode of V-tach. This resolved on its own. Patient was asymptomatic. No intervention required. At discharge patient will continue with lisinopril 20 mg 1 pill twice daily. Recommend to maintain blood pressure less than 130/80. Further adjustment can be done by his PCP. Recommend follow up with cardiology in the future to consider cardiac evaluation due to his multiple risk factors. 5. Patient with diabetic neuropathy. At [facility] he may continue with gabapentin 300 mg 3 pills 3 times a day. Further adjustment can be done by his PCP. 6. Patient with BPH. At discharge patient will continue with Flomax 0.8 mg daily and Proscar 5 mg daily. 7. Patient with hyperlipidemia. At discharge patient will continue with Lipitor 10 mg daily. Diet: ADA Activity: Ad zaynab Followup: OOT,OOT [Primary Care Provider] - Time spent managing pt's care (in minutes): 55
[2020-08-07 14:55] VITALS: BP 142/68; TEMP 98.2
[2020-08-07] MEDS: Levofloxacin500mg IV 500 MG/100 ML BAG IV SCH (15:00)
== END 2020-08-07 16:38 | disposition home or self-care (01) | DRG 389 ==
LOC: ER 11:39 → ERHOLD 14:19 → 2ND 16:20
PROVIDERS: ADMIT Hospitalist; ATTEND Family Medicine
DX: K56.51 Intestinal adhesions [bands], with partial obstruction (principal); I47.2 Ventricular tachycardia; I10 Essential (primary) hypertension; E11.40 Type 2 diabetes mellitus with diabetic neuropathy, unspecified; N40.0 Benign prostatic hyperplasia without lower urinary tract symptoms; G25.0 Essential tremor; E78.5 Hyperlipidemia, unspecified; Z79.84 Long term (current) use of oral hypoglycemic drugs; Z87.891 Personal history of nicotine dependence; Z79.82 Long term (current) use of aspirin; Z79.899 Other long term (current) drug therapy; Z20.828 Contact with and (suspected) exposure to other viral communicable diseases
CPT/HCPCS: 36415; 74022; 74177; 80048; 80053; 80076; 82947; 83690; 83735; 84100; 85025; 85610; 85730; 93306; 94010; 97116; 97161; 99285; J0696; J1170; J1650; J2405; J7040; J7120; Q9967